=== PATIENT | female | born 1960 | race Caucasian/White ===

== ENCOUNTER 2016-12-17 08:04 | Emergency (ER) | payer OTHER ==
[~2016-12-17] VITALS: Ht 180.3 cm; Wt 113.4 kg
[2016-12-17] MEDS ORDERED: BACTRIM DS TAB1 EACH PO (08:11)
[2016-12-17] MEDS ORDERED: LIPITOR40 MG PO (08:14)
[2016-12-17] MEDS ORDERED: VITAMIN D2000 UNIT PO (08:14)
[2016-12-17] MEDS ORDERED: CARVEDILOL12.5 MG PO (08:14)
[2016-12-17] MEDS ORDERED: AMARYL4 MG PO (08:15)
[2016-12-17] MEDS ORDERED: CLONAZEPAM 1 MG1 M1 PO (08:15)
[2016-12-17] MEDS ORDERED: FEOSOL325 M1 PO (08:15)
[2016-12-17] MEDS ORDERED: CYMBALTA30 MG PO (08:15)
[2016-12-17] MEDS ORDERED: HYDROCODON-ACE1 EA12 PO (08:17)
[2016-12-17] MEDS ORDERED: INDAPAMIDE2.5 MG PO (08:17)
[2016-12-17] MEDS ORDERED: HUMALOG100 UNIT/2 SQ (08:18)
[2016-12-17] MEDS ORDERED: LANTUS100 UNIT/M SUBQ (08:18)
[2016-12-17] MEDS ORDERED: LEVOTHYROXIN0.088 MG PO (08:20)
[2016-12-17] MEDS ORDERED: MAGNESIUM250 M1 PO (08:21)
[2016-12-17] MEDS ORDERED: UNICOMPLEX M TA1 TA1 PO (08:22)
[2016-12-17] MEDS ORDERED: METFORMIN HCL1000 MG PO (08:22)
[2016-12-17] MEDS ORDERED: NAPROSYN500 MG PO (08:23)
[2016-12-17] MEDS ORDERED: ZOLOFT50 MG PO (08:24)
[2016-12-17] MEDS ORDERED: SILVADENE20 GM TP (08:25)
[2016-12-17] MEDS ORDERED: JANUVIA100 MG PO (08:25)
[2016-12-17] MEDS ORDERED: ALDACTONE25 MG PO (08:25)
[2016-12-17] MEDS ORDERED: TRAZODONE HCL100 MG PO (08:26)
[2016-12-17 08:47] LABS: HEMOGLOBIN 14.7 gm/dL (12.0-15.0); MCH 29.3 pg (26.0-34.0); MCHC 34.3 g/dL (28.0-37.0); MCV 85.3 fL (80.0-100.0); RBC 5.04 mil/uL (4.20-5.00); RDW 13.2 % (10.5-14.5); WBC 11.9 thou/uL (4.0-11.0)
[2016-12-17 08:54] LABS: CALCIUM 9.7 mg/dL (8.5-10.1); CREATININE 1.3 mg/dL (0.6-1.0); POTASSIUM 4.4 mmol/L (3.5-5.1)
[2016-12-17 08:58] LABS: ALBUMIN 3.9 g/dL (3.4-5.0); TOTAL BILIRUBIN 0.3 mg/dL (<0.1-1.0); TOTAL PROTEIN 8.5 g/dL (6.4-8.2)
[2016-12-17 09:39] VITALS: BP 112/64
== END 2016-12-17 10:00 | disposition home or self-care (01) ==
LOC: ER 08:04
PROVIDERS: Emergency Medicine
DX: T38.3X5A Adverse effect of insulin and oral hypoglycemic [antidiabetic] drugs, initial encounter (principal); F17.210 Nicotine dependence, cigarettes, uncomplicated; F12.10 Cannabis abuse, uncomplicated; Z91.041 Radiographic dye allergy status; Z88.8 Allergy status to other drugs, medicaments and biological substances; Z79.4 Long term (current) use of insulin; Y92.89 Other specified places as the place of occurrence of the external cause

== ENCOUNTER 2018-07-14 16:07 | Emergency (ER) | payer OTHER ==
[~2018-07-14] VITALS: Ht 180.3 cm; Wt 89.8 kg
[~2018-07-14 16:07] MED LIST: ALDACTONE25 MG PO; AMARYL4 MG PO; BACTRIM DS TAB1 EACH PO; CARVEDILOL12.5 MG PO; CLONAZEPAM 1 MG1 M1 PO; CYMBALTA30 MG PO; FEOSOL325 M1 PO; HUMALOG100 UNIT/2 SQ; HYDROCODON-ACE1 EA12 PO; INDAPAMIDE2.5 MG PO; JANUVIA100 MG PO; LANTUS100 UNIT/M SUBQ; LEVOTHYROXIN0.088 MG PO; LIPITOR40 MG PO; MAGNESIUM250 M1 PO; METFORMIN HCL1000 MG PO; NAPROSYN500 MG PO; SILVADENE20 GM TP; TRAZODONE HCL100 MG PO; UNICOMPLEX M TA1 TA1 PO; VITAMIN D2000 UNIT PO; ZOLOFT50 MG PO
[2018-07-14 20:00] VITALS: BP 145/71
== END 2018-07-14 20:00 | disposition short-term general hospital (02) ==
LOC: ER 16:07
DX: T25.221A Burn of second degree of right foot, initial encounter (principal); T31.0 Burns involving less than 10% of body surface; E11.40 Type 2 diabetes mellitus with diabetic neuropathy, unspecified; F17.210 Nicotine dependence, cigarettes, uncomplicated; F32.9 Major depressive disorder, single episode, unspecified; F41.9 Anxiety disorder, unspecified; Z91.041 Radiographic dye allergy status; Z88.8 Allergy status to other drugs, medicaments and biological substances; Z79.4 Long term (current) use of insulin

== ENCOUNTER 2019-02-26 20:57 | Inpatient (IN) | payer OTHER ==
[~2019-02-26] VITALS: Ht 180.3 cm; Wt 86.6 kg
[2019-02-26 20:59] VITALS: BP 149/49
[2019-02-26 21:28] LABS: ABSOLUTE NEUTROPHILS 8.4 thou/uL (1.4-8.2); BASOPHILS 0.8 % (0.0-2.0); EOSINOPHILS 0.2 % (0.0-3.0); HEMATOCRIT 37.5 % (37.0-47.0); HEMOGLOBIN 12.6 gm/dL (12.0-15.0); LYMPHOCYTES 3.4 % (24.0-44.0); MCH 29.6 pg (26.0-34.0); MCHC 33.8 g/dL (28.0-37.0); MCV 87.5 fL (80.0-100.0); MONOCYTES 4.7 % (1.0-8.0); PLATELET COUNT 174 thou/uL (150-400); POLYS 90.9 % (36.0-66.0); RBC 4.28 mil/uL (4.20-5.00); RDW 12.8 % (10.5-14.5); WBC 9.2 thou/uL (4.0-11.0)
[2019-02-26 21:29] LABS: URINE BILIRUBIN NEGATIVE (Negative); URINE BLOOD NEGATIVE (Negative); URINE CLARITY CLEAR; URINE COLOR YELLOW; URINE GLUCOSE-RANDOM* NEGATIVE (Negative); URINE KETONES TRACE (Negative); URINE LEUKOCYTES-REFLEX NEGATIVE (Negative); URINE NITRITE-REFLEX NEGATIVE (Negative); URINE PROTEIN (DIPSTICK) TRACE (Negative); URINE UROBILINOGEN 0.2 E.U./dl (0.2-1.0)
[2019-02-26 21:36] LABS: CALCIUM 9.6 mg/dL (8.5-10.1); CREATININE 1.1 mg/dL (0.6-1.0); POTASSIUM 4.2 mmol/L (3.5-5.1)
[2019-02-26 21:43] LABS: ALBUMIN 3.3 g/dL (3.4-5.0); DIRECT BILIRUBIN 0.2 mg/dL (<0.1-0.3); TOTAL BILIRUBIN 0.4 mg/dL (<0.1-1.0); TOTAL PROTEIN 7.3 g/dL (6.4-8.2)
[2019-02-26 22:01] LABS: AMP/METHAMP Negative (Negative); BARBITURATES Negative (Negative); BENZODIAZEPINES POSITIVE (Negative); COCAINE Negative (Negative); METHADONE Negative (Negative); OPIATES Negative (Negative); PCP Negative (Negative)
[2019-02-27 03:45] VITALS: BP 118/45
[2019-02-27 04:15] VITALS: BP 115/62
[2019-02-27 04:20] VITALS: BP 96/68
--- NOTE | 2019-02-27 05:27 | NUR ---
ASSUMED CARE OF PT AT 0415HRS. PT AOX4 AND AGREES TO CALL FOR HELP NEEDED. PT WAS ABLE TO SHUFFLE FROM CART TO BED. FALL PRECAUTION IN PLACE. PT DENIES PAIN OR NAUSEA AT THIS TIME. PT IS AFEBRILE UPON INITIAL ASSESSMENT. PT WAS ABLE TO ANSWER ALL ADMISSION RELATED QUESTIONS. PT IS UNABLE TO NAME ALL HOME MEDS AND DOSAGE AND STATES THAT HER SON WILL BRING MED LIST FROM HOME IN THE AM. VITAL SIGN STABLE AND NO S/S OF ACUTE DISTRESS. WILL CONTINUE TO MONITOR.
[2019-02-27 05:34] LABS: CALCIUM 9.2 mg/dL (8.5-10.1); CREATININE 0.9 mg/dL (0.6-1.0); POTASSIUM 3.6 mmol/L (3.5-5.1)
[2019-02-27 07:34] VITALS: BP 116/53
[2019-02-27] MEDS ORDERED: ABILIFY 5 MG TAB5 M1 (13:46)
[2019-02-27] MEDS ORDERED: IBUPROFEN 800800 M1 (13:53)
[2019-02-27] MEDS ORDERED: NEURONTIN 300300 M1 (14:09)
[2019-02-27] MEDS ORDERED: ASPIR 8181 M1 (14:15)
[2019-02-27] MEDS ORDERED: OXYBUTYNIN 5 MG5 M2 (14:17)
[2019-02-27] MEDS ORDERED: COZAAR 25 MG TA25 MG (14:19)
[2019-02-27 15:26] VITALS: BP 128/54
--- NOTE | 2019-02-27 16:07 | NUR ---
PT ASSESSED AT START OF SHIFT. PT WEAK AND UNSTEADY WHEN OUT OF BED. USES WALKER AT HOME. NOT ABLE TO REMEMBER VERY WELL WHEN ASKED ABOUT START OF SYMPTOMS AND HISTORY OF WT LOSS AND ANOREXIA. SON AND PT STATE NO APPETITE -EATS ONE OR TWO BITES FROM MEAL TRAY. TOOK SHOWER AND MYSTATIN PLACED IN PANUS AREA W/ YEAST. DR. FELIX IN TO SEE AND EXAMINE PT THIS AFTERNOON. LABS ORDERED. SHE WILL SHE PT TOMORROW.
[2019-02-27 18:54] VITALS: BP 126/51
[2019-02-28 00:05] LABS: CA 125 18.6 U/mL (0.0-38.1)
--- NOTE | 2019-02-28 01:58 | NUR ---
A*O *4, calm and pleasant; temperature [id number], Nursing Practioner Ms. Carey and Dr. Stack has been reported to about it. Temperature 37.2 at 2128. Patient coplained of LLQ pain 6/10, claiming that the pain was minor during the day time but worse at night. Nursing practioner Ms. Carey and Dr. Stack were both reported to about it; Patient has been in bed with eyes closed after Tylenol being administrated. Denied nausea, no vomitting.lab reviewed. Will keep monitoring.
--- NOTE | 2019-02-28 04:50 | NUR ---
Patient was noted to have a bleeding on the big left toe, band aid applied accoring to the patient request; patient claimed that it had happened times during the past; the staff educated the patient to report it to the doctor in the day time, the patient agreed; the staff would pass this on to the day nurse.
[2019-02-28 07:00] VITALS: BP 125/50
[2019-02-28 12:06] LABS: CEA 4.2 ng/mL (0.0-4.7)
--- NOTE | 2019-02-28 12:53 | NUR ---
ASSUMED CARE AT 0700, SHIFT ASSESSME
--- NOTE | 2019-02-28 12:54 | NUR ---
ASSUMED CARE AT 0700, SHIFT ASSESSMENT DONE, MEDS GIVEN, VSS. DENIES PAIN, NAUSEA, VOMITING. LAB CALLED ABOUT 2 BLOOD CULTURE THAT WAS POSTIVE FOR GRAM POSITIVE COCCI, DR GARCIA AWARE, RECEIVING IV ANTIBIOTICS. UP WITH A STANDBY ASSIST AND WALKER. WILL CONTINUE TO ASSESS AND ASSIST WITH ADLs NEEDED.
--- NOTE | 2019-02-28 14:22 | NUR ---
PT ADMITTED RELATED TO FEVER, N/V, PELVIC MASS. CM REVIEWED CHART AND SPOKE WITH CARE TEAM. CM MET WITH PT AT BEDSIDE THIS DAY. PT IS A&O X4. CM ROLE INTRODCUED. PT INDICATED SHE LIVES IN A SENIOR APARTMENT [facility]. PT INIDCATED SHE HAD USED A 4WW TO ASSIST WITH MOBILITY WORKFORCE DEVELOPMENT SPECIALIST. PT INDICATED SHE HAD BEEN INDEPDENENT WITH ADLS WORKFORCE DEVELOPMENT SPECIALIST, AND SHE INDICATED NO HH OR SKF HX. PT INDICATED HER PCP IS CUT IN WORKER RADHA DYER. PT INDICATED SHE PLANS TO RETURN HOME ONCE MEDICALLY STABLE. CM TO FOLLOW REGARDING DC PLANNING.
[2019-02-28 20:05] VITALS: BP 130/49
[2019-03-01 01:10] LABS: GLYCOHEMOGLOBIN (HGB A1C) 5.1 % (4.8-5.6)
--- NOTE | 2019-03-01 04:15 | NUR ---
ASSUMED CARE OF PT AT 1900HRS. PT AOX4 AND LETS NEEDS BE KNOWN. PT NO LONGER A FALL RISK AND AMBULATES WELL WITH A WALKER. ABX TREATMENT CONTINUED. PT DENIED NAUSEA. PT REPORTED SOME ABDOMINAL PAIN AND OT TORADOL WAS GIVEN. PT WAS UNABLE TO SLEEP WELL AND REPORTS THAT SHE USES MORE SLEEP AID AT HOME. VSS AND NO S/S OF ACUTE DISTRESS. WILL CONTINUE TO MONITOR.
[2019-03-01 07:30] VITALS: BP 148/67
[2019-03-01 08:07] LABS: HEP B SURFACE Ab(ANTI-HBS Non Reactive (()); HEPATITIS B SURFACE AG Negative (Negative); HEPATITIS C VIRUS AB <0.1 (0.0-0.9)
[2019-03-01 14:27] LABS: HEMOGLOBIN 11.1 gm/dL (12.0-15.0); MCH 29.1 pg (26.0-34.0); MCHC 33.6 g/dL (28.0-37.0); MCV 86.6 fL (80.0-100.0); RBC 3.81 mil/uL (4.20-5.00); RDW 12.7 % (10.5-14.5); WBC 4.3 thou/uL (4.0-11.0)
[2019-03-01 14:36] LABS: CALCIUM 9.1 mg/dL (8.5-10.1); CREATININE 0.8 mg/dL (0.6-1.0); MAGNESIUM 1.5 mg/dL (1.8-2.4); POTASSIUM 3.3 mmol/L (3.5-5.1)
--- NOTE | 2019-03-01 15:50 | NUR ---
Received awake on bed. Due medications given as prescribed, able to swallow tablets w/o difficulty. A+O. On room air. On blood sugar monitoring- taken and recorded, no sliding scale ordered, metformin on hold as per Dr's notes. On regular diet- pt tolerating meals, no nausea and vomiting noted. Vital signs stable. Wth SL at L hand- intact and flushing well. Visited by relative today. PT's medication reconcilation done today. A/w urine sample. Pt complained of abdominal pain, Dr Thompson informed, PRN medication Maalox given as prescribed. Urine sample sent to laboratory. Pt seen by Dr Morales- to continue IV antibiotics, a/w blood culture results. Assisted in ADLs, able to use walker with standby assist.
[2019-03-01 16:25] VITALS: BP 109/64
[2019-03-01 18:20] VITALS: BP 135/57
[2019-03-01 19:12] VITALS: BP 122/49
--- NOTE | 2019-03-02 04:17 | NUR ---
ASSUMED CARE OF PT AT 1900HRS. PT IS A0X4 AND LETS NEEDS BE KNOWN. PT DENIED PAIN OR NAUSEA THIS SHIFT. ABX TREATMENT CONTINUED. PT WAS ABLE TO GET COMFORTABLE AND SLEEP PART OF THE SHIFT. VSS AND NO S/S OF ACUTE DISTRESS. WILL CONTINUE TO MONITOR.
[2019-03-02 07:40] VITALS: BP 135/61
[2019-03-02 09:27] LABS: HEMATOCRIT 31.8 % (37.0-47.0); HEMOGLOBIN 10.8 gm/dL (12.0-15.0); MCH 29.4 pg (26.0-34.0); MCHC 33.8 g/dL (28.0-37.0); RBC 3.66 mil/uL (4.20-5.00); RDW 12.7 % (10.5-14.5); WBC 4.7 thou/uL (4.0-11.0)
[2019-03-02 09:32] LABS: CALCIUM 8.8 mg/dL (8.5-10.1); CREATININE 0.7 mg/dL (0.6-1.0); MAGNESIUM 1.5 mg/dL (1.8-2.4); POTASSIUM 3.6 mmol/L (3.5-5.1)
--- NOTE | 2019-03-02 11:29 | NUR ---
Received awake on bed. Due medications given as prescribed, no difficulty of swallowing noted. A+O. On blood sugar monitoring- taken and recorded, no insulin coverage, metformin still on hold as per doctor's order. With SL at L hand- intact and flushing well. Pt up ad lilly, using walker. Vital signs stable. Pt's IV dislodged after having a shower- resited at L FA.
[2019-03-02 15:39] VITALS: BP 115/46
[2019-03-02 20:05] VITALS: BP 135/58
--- NOTE | 2019-03-03 02:44 | NUR ---
ASSUMED CARE OF PT AT 1900HRS. PT AOX4 AND LETS NEEDS BE KNOWN. PT DENIED NAUSEA AND REPORTED MINIMAL PAIN/DISCOMFORT. ABX TREATMENT CONTINUED. PT WAS ABLE TO GET COMFORTABLE AND SLEEP PART OF THE SHIFT. VSS AND NO S/S OF ACUTE DISTRESS. WILL CONTINUE TO MONITOR.
[2019-03-03 07:53] VITALS: BP 130/74
--- NOTE | 2019-03-03 13:49 | NUR ---
PT SEEN BY GI SHE IS TO HAVE AN EGD IN THE AM AND IF NEGATIVE A GASTRIC EMPTYING STUDY. STILL AWAITING INPUT FROM ID ON IV ABX NEEDS. CM FOLLOWING REGARDING DC PLANNING.
[2019-03-03 20:06] VITALS: BP 136/66
--- NOTE | 2019-03-03 20:47 | NUR ---
QUIET UNEVENTFUL DAY. HAD ONE EPISODE OF ABD PAIN. PATIENT STATED THE PAIN HAPPENS APPROXIMATELY ONE HOUR AFTER EATING. TYLENOL GIVEN WITH MINIMAL RELIEF. TOLERATING DIET. IV ANTIBIOTICS CONTINUED ORDERED. AFEBRILE.
[2019-03-04 05:40] VITALS: BP 139/62
[2019-03-04 07:22] VITALS: BP 137/55
--- NOTE | 2019-03-04 07:50 | NUR ---
ASSUMED CARE AROUND 1900. AXOX4. KEPT NPO FOR EGD IN AM. MRI SCREENING COMPLETED FOR MRI OF THE FOOT. L GREAT TOE DRESSING CDI. PT WILL NOT ALLOW EXAMINATION. GAVE REPORT TO INCOMING RN ABOUT FOLLOWING UP FOR WOUND CARE NEED. CARE TRANSFERRED TO DAY RN AT THIS TIME.
[2019-03-04 14:36] VITALS: BP 130/54
--- NOTE | 2019-03-04 14:56 | NUR ---
WOUND CARE CONSULT; LEFT GREAT TOE. SMALL ABRASIONS. NO S/S OF INFECTION. THE PATIENT IS A DIABETIC. RECOMMENDATIONS; OFFLOADING SHOE APPLIED A BARRIER WIPE. COVER WITH A BANDAID.
--- NOTE | 2019-03-04 15:09 | NUR ---
DISCHARGE PLANNING. POSSIBLE WEEKEND DISCHARGE TO HOME. HOME HEALTH RECOMMENDED FOR PATIENT AT DISCHARGE. PATIENT REFERRAL FAXED TO [facility] FOR PATIENTS DISCHARGE NEEDS. VERIFIED REFERRAL RECEIVED. AWAITING ACCEPTANCE RESPONSE FROM [facility]. FOLLOWINIG.
[2019-03-04 15:31] LABS: HEMATOCRIT 31.3 % (37.0-47.0); HEMOGLOBIN 10.5 gm/dL (12.0-15.0); MCH 29.4 pg (26.0-34.0); MCHC 33.6 g/dL (28.0-37.0); MCV 87.5 fL (80.0-100.0); RBC 3.57 mil/uL (4.20-5.00); RDW 12.6 % (10.5-14.5); WBC 7.4 thou/uL (4.0-11.0)
[2019-03-04 15:43] LABS: CALCIUM 9.4 mg/dL (8.5-10.1); CREATININE 0.7 mg/dL (0.6-1.0); MAGNESIUM 1.6 mg/dL (1.8-2.4)
--- NOTE | 2019-03-04 16:13 | NUR ---
CM SENT REFERAL TO [facility] FOR POSSIBLE HOME INFUSION UPON DC. THEY INDICATED THAT IF PF DISCHARGES ON TO IV ABX COPAY IS $6.80 AND THERE IS A SUPPLY COST O $17.19 PER DAY UNIL OOP OF 6400 IS MET OF WHICH 20 HAS BEEN PAID. DC ALL AROUND PATTERNMAKER SENT REFERAL TO [facility] AND THEY ARENT ABLE TO [facility] PT REFERRAL SENT TO [facility]. SHOULD PT BE MEDICALLY STABLE TO DC OVER THE WEEKEND. ORDERS WILL NEED TO BE FAXED TO CALL PHARMACIST CELL AT . FAX ORDERS TO [facility] AT . CM TO FOLLOW INDICATED WITH DC PLANNING.
--- NOTE | 2019-03-04 16:49 | NUR ---
Received awake on bed. Due medications given as prescribed. A+0x4. On room air. On nothing per orem- pt scheduled for EGD today, consent signed; a/w time for procedure. With SL at L FA- intact and flushing well. Pt schedule for MRI of foot today- checklist sent already. Vital signs stable. Assisted in ADLs. Gastro staff called, update given re: patient, will fetch her between 8-9am- pt informed. Pt had MRI after having EGD done. Pt had EGD done, GI nurse relayed that pt has gastritis and ulcer- Dr Thompson informed. Pt's missed medication re-started. No nausea, no vomiting and abdominal pain noted. Put in wound care consult for her Left big toe wound- Pt seen by Wound nurse Misha- wound care ordered. With order of Abdominal Ct scan with contrast- requested; pt placed on NPO- to be brought down at 5pm, coordinated with CT scan staff and volunteer transport to bring pt down. Wound photo not taken due to POC- to inform night staff or to do tomorrow.
[2019-03-04 17:10] VITALS: BP 130/54
[2019-03-04 20:30] VITALS: BP 123/48
--- NOTE | 2019-03-05 04:06 | NUR ---
PATIENT ALERT AND ORIENTED X4. UP TO BATHROOM AD NAVEED. DENIES PAIN. BLOOD SUGAR TAKEN PER ORDER, HOWEVER, NO S/S OR ORAL MEDICATION. IVPB INFUSED W/O COMPLICATION. PATIENT COOPERATIVE WITH CARE. RESTING QUIETLY AT TIME OF NOTE. WILL MONITOR.
[2019-03-05 04:51] VITALS: BP 133/48
[2019-03-05 08:00] VITALS: BP 146/60
--- NOTE | 2019-03-05 11:54 | NUR ---
Received awake on bed. Due medications given as prescribed, able to swallow tablets w/o difficulty. A+Ox4. On room air. With SL at upper left arm- intact and flushing well. Vital signs stable. Able to mobilize using walker. On blood sugar monitoring, no insulin coverage, oral metformin on hold. Tolerating meals, no nausea, no vominting and abdominal pain noted.
--- NOTE | 2019-03-05 14:19 | 2DMMODE ---
[facility] [address] [place] [address] 2 D/M-MODE ECHOCARDIOGRAM Name: CHRISTOPHER SANCHEZ Room #: 434-P ADM IN M.R.#: [id number] Admission: 02/27/19 Attend Phys: Sang Guillory Discharge: Date of : 58 Report #: [id number] THIS REPORT FOR: //name// APPROVED REPORT Study performed: 03/05/2019 12:29:23 EXAM: Comprehensive 2D, Doppler, and color-flow Echocardiogram Patient Location: Bedside Room #: 434 Status: on-call BSA: 2.07 HR: 60 bpm BP: 146/60 mmHg Rhythm: NSR Other Information Study Quality: Adequate Risk Factors: Cardiac Risk Factors: Smoking, DM, Hyperlipidemia, HTN Indications Murmur 2D Dimensions IVSd: 5.98 (7-11mm) LVOT Diam: 20.00 (18-24mm) LVDd: 47.50 mm PWd: 9.29 (7-11mm) Ascending Ao: 31.72 (22-36mm) LVDs: 33.27 (25-40mm) Aortic Root: 30.56 mm Volumes Left Atrial Volume (Systole) Single Plane 4CH: 45.93 mL Single Plane 2CH: 53.26 mL LA ESV Index: 27.00 mL/m2 Aortic Valve AoV Peak Eulalio.: 2.20 m/s AO Peak Gr.: 19.35 mmHg LVOT Max P.16 mmHg AO Mean Gr.: 12.48 mmHg LVOT Mean P.21 mmHg AO V2 Mean: 1.73 m/s LVOT Max V: 0.97 m/s AO V2 VTI: 62.15 cm LVOT Mean V: 0.70 m/s FARNAZ (VTI): 1.43 cm2 LVOT V1 VTI: 28.93 cm [facility] [place] [address] 2 D/M-MODE ECHOCARDIOGRAM Name: CHRISTOPHER SANCHZE Room #: 434-P [facility] IN ..#: [id number] Admission: 02/27/19 Attend Phys: Sang Guillory Discharge: Date of : 58 Report #: [id number] Vmax: 1.36 cm2 SV (LVOT): 88.66 mL Mitral Valve E/A Ratio: 1.4 MV Decel. Time: 278.56 ms MV E Max Eulalio.: 1.33 m/s MV A Eulalio.: 0.97 m/s MV PHT: 80.78 ms IVRT: 65.74 ms TDI E/Lateral E': 14.78 E/Medial E': 14.78 Medial E' Eulalio.: 0.09 m/s Lateral E' Eulalio.: 0.09 m/s Pulmonary Valve PV Peak Eulalio.: 1.15 m/s PV Peak Gr.: 5.30 mmHg Pulmonary Vein P Vein S: 0.61 m/s P Vein A: 0.25 m/s P Vein D: 0.56 m/s P Vein A Dur.: 138.4 msec P Vein S/D Ratio: 1.09 Tricuspid Valve TR Peak Eulalio.: 2.44 m/s RAP Estimate: 7.00 mmHg TR Peak Gr.: 23.79 mmHg PA Pressure: 31.00 mmHg Left Ventricle The left ventricle is normal size. There is normal LV segmental wall motion. There is normal left ventricular wall thickness. Left ventricular systolic function is normal. The left ventricular ejection fraction is within the normal range. LVEF is 65%. The left ventricular diastolic function is normal. Right Ventricle The right ventricle is normal size. The right ventricular systolic function is normal. Atria The left atrium size is normal. The right atrium size is normal. Aortic Valve Aortic valve is calcified, mildly stenotic. No aortic regurgitation [facility] [address] [place] [address] 2 D/M-MODE ECHOCARDIOGRAM Name: CHRISTOPHER SANCHEZ Room #: 434-P [facility] IN M.R.#: [id number] Admission: 02/27/19 Attend Phys: Sang Guillory Discharge: Date of : 58 Report #: [id number] is present. The peak aortic valve pressure gradient is 19 mmHg and the mean pressure gradient is 12 mmHg. The calculated aortic valve area is 1.4 cm2 Mitral Valve The mitral valve is normal in structure. Trace mitral regurgitation. No evidence of mitral valve stenosis. Tricuspid Valve The tricuspid valve is normal in structure. Mild to moderate tricuspid regurgitation. Pulmonary artery pressure is 30 mmHg. Pulmonic Valve The pulmonary valve is normal in structure. There is no pulmonic valvular regurgitation. Great Vessels The aortic root is normal in size. The ascending aorta is normal in size. IVC is normal in size and collapses >50% with inspiration. Pericardium There is no pericardial effusion. <Conclusion> Left ventricular systolic function is normal. There is normal LV segmental wall motion. LVEF is 65%. Normal diastolic function Aortic valve is calcified, mildly stenotic. The peak aortic valve pressure gradient is 19 mmHg and the mean pressure gradient is 12 mmHg. The calculated aortic valve area is 1.4 cm2 The mitral valve is normal in structure. Trace mitral regurgitation. Mild to moderate tricuspid regurgitation. Pulmonary artery pressure of 30 mmHg. There is no pericardial effusion. <ELECTRONICALLY SIGNED> By: Omero Cantu MD, [facility] 03/05/19 1419 1419 141 Omero Cantu MD, FACC /INF
[2019-03-05 15:00] VITALS: BP 146/55
[2019-03-05 19:38] VITALS: BP 152/69; BP 152/696
--- NOTE | 2019-03-06 04:27 | NUR ---
Pt. rested quietly at short intervals during the night when checked on during frequent rounds. She has been up ad lilly in her room and in the hallway. Pt. offers no c/o pain or nausea. No c/o indigestion.
[2019-03-06 07:34] VITALS: BP 165/63
--- NOTE | 2019-03-06 12:24 | EKG ---
[address] [address] ELECTROCARDIOGRAM REPORT Name: CHRISTOPHER SANCHEZ Room #: 434- ADM IN M.R.#: [id number] Admission: 02/27/19 Attend Phys: Sang Guillory MD Discharge: Date of : 58 Report #: [id number] THIS REPORT FOR: //name// [facility] Test Date: 2019-03-05 Test Time: 12:06:03 Pat Name: CHRISTOPHER SANCHEZ Department: Room: 434 Gender: F Slot Host: VELIA : 1960 Requested By: Roberth Thompson Order Number: [id number] MD: Omero Cantu Measurements Intervals [place] Rate: 54 P: 60 MS: 194 QRS: 8 QRSD: 83 T: 16 QT: 449 QTc: 426 Interpretive Statements Sinus bradycardia Otherwise normal tracing No previous ECG available for comparison Electronically Signed On 03-06-2019 12:23:48 CDT by Omero Cantu [email or web address] <ELECTRONICALLY SIGNED> By: Omero Cantu MD, [facility] 03/06/19 1223 D: [id number] 120 Omero Cantu MD, FACC /EPI
--- NOTE | 2019-03-06 12:57 | NUR ---
PT CALLED OUT AND STATED THAT HER IV SITE WAS STINGING. NURSE ASSESSED SITE AND IV WAS INFILTRATED. IV REMOVED AND WARM COMPRESS APPLIED. IV TEAM PAGED AND NEW IV WAS PLACED BY IV NURSE. WILL CONTINUE TO MONITOR IV SITE AND REAPPLY WARM COMPRESSES NEEDED.
[2019-03-06 15:22] VITALS: BP 128/51
[2019-03-06 19:11] VITALS: BP 158/65
--- NOTE | 2019-03-07 04:13 | NUR ---
Pt. rested quietly at intervals during the night when checked on during frequent rounds. Pt. offers no c/o pain. Left arm pinkish/red and swollen from previous iv site. Warm compress offered, but pt. refused. Pt. has been up ad lilly in her room.
[2019-03-07 07:30] VITALS: BP 157/65
--- NOTE | 2019-03-07 09:44 | NUR ---
Received awake on bed. Due medications given as prescribed. A+Ox4. On room air. On blood sugar monitoring, no insulin coverage, Metformin still on hold- taken and recorded accordingly. With SL at R FA- intact and flushing well. A/W PT/OT evaluation- then possible d/c today after evaluations. A/W CM input re: set up. Vital signs stable. Able to ambulate using walker, independent with ADLs. Pt very keen to go home today. With abrasion at L toe- to change dressing today and take photo.
--- NOTE | 2019-03-07 10:40 | NUR ---
emmy called [facility] and spoke with Danielle, Danielle couldn't find referral sent last week so she asked to send another, patient will dc today and no longer require iv antibiotics. CM to follow up.
[2019-03-07 12:00] VITALS: BP 130/54
[2019-03-07] MEDS ORDERED: AUGMENTIN 875-1 EACH PO (12:31)
[2019-03-07] MEDS ORDERED: PANTOPRAZOLE SO40 M1 PO (12:37)
--- NOTE | 2019-03-07 13:45 | NUR ---
CARE TEAM INDICATED THAT PT IS MEDICALLY STABLE TO DC HOME THIS DAY. PT IS TO BE ON PO ABX. CM NOTIFIED [facility] OF THAT. PT IS TO HAVE [facility]. PT HAS ALL RECOMMENDED DME. PT'S DAVIAN IS TO TRANSPORT HER HOME. NO OTHER CM INTERVENTION INDICATED. CASE CLOSED.
--- NOTE | 2019-03-07 14:06 | PATH ---
[facility] [address] [place] [address] PATHOLOGY RPT PROCEDURE Name: CHRISTOPHER TAYLOR Room #: 434-P ADM IN M.R.#: [id number] Admission: 02/27/19 Date of : 58 Discharge: Report #: [id number] Path Case #: [id number] [facility] Accession Number: [id number] . 01 Material submitted: . PART A: duodenum - DUODENAL BX PART B: stomach - GASTRITIS, GASTRIC ULCER . 01 Clinical history: . Abdominal pain, gastritis, gastric ulcer. . 02 Diagnosis: A. Small bowel mucosa, duodenum rule out sprue, endoscopic biopsy: - Mild non-specific acute and chronic duodenitis. - Negative for villous blunting or increase in intraepithelial lymphocytes. . B. Gastric mucosa, gastritis/gastric ulcer, endoscopic biopsy: - Moderate reactive gastropathy. - Negative for intestinal metaplasia or atrophy. - Negative for Helicobacter pylori (properly controlled immunohistochemical stain performed). (IUV/db; 03/07/2019) [facility] 03/07/2019 1032 Local . 02 Electronically signed: . Corinna Mullins MD, Pathologist NPI- [id number] . 01 Gross description: . A. Received in formalin labeled "Christopher Talyor, duodenal BX" is a 0.9 x 0.4 x 0.2 cm aggregate of montero-brown mucosa fragments. The specimen is submitted in A1. . B. Received in formalin labeled "Christopher Taylor, gastritis" is a 1.0 x 0.5 x 0.2 cm aggregate of montero-brown mucosa fragments. The specimen is submitted in B1. ([facility]; 03/05/2019) [facility] 03/05/2019 1355 Local . 02 Pathologist provided ICD-10: K29.80, K31.9 . 02 CPT . 921604, 185631, E74192 Specimen Comment: A courtesy copy of this report has been sent to Specimen Comment: [phone], . Specimen Comment: Report sent to / [place] [address] PATHOLOGY RPT PROCEDURE Name: CHRISTOPHER TAYLOR Room #: 434-P ADM IN M.R.#: [id number] Admission: 02/27/19 Date of : 58 Discharge: Report #: [id number] Path Case #: [id number] Performed at: 01 [facility] [address] [place] [address] [address], [place], [place] [id number] MD Olegario Walton MD Phone: [phone] Performed at: [address] [id number] MD Corinna Mullins MD Phone: [phone]
--- NOTE | 2019-03-11 08:09 | P ---
[facility] [place] [address] PROCEDURE REPORT Name: CHRISTOPHER SANCHEZ Room #: 434-P [facility] IN M.R.#: [id number] Admission: 02/27/19 Attend Phys: Sang Guillory MD Discharge: 03/07/19 Date of : 58 Report #: [id number] THIS REPORT FOR: //name// CC: NANCY ROSSI physician/PCP Sang Guillory DATE OF SERVICE: 03/04/2019 PROCEDURE PERFORMED: Upper endoscopy with biopsies. HISTORY OF PRESENT ILLNESS: The patient is a 58-year-old female with nausea, vomiting, abdominal pain and fever. Blood cultures are actually positive. Etiology of infection is still under investigation. CT scan of the abdomen and pelvis showed bilateral ovarian masses, most likely cystic masses. She has been on antibiotics. She is being followed by Dr. Morales at this time. Her nausea and vomiting has actually improved. Her abdominal pain is crampy and low in general. Plan is for EGD. DESCRIPTION OF PROCEDURE: The risks and benefits of the procedure were explained to the patient, those risks including but not limited to bleeding, perforation and the risk of sedation. She understood these risks and gave informed consent. Sedation was given using propofol per anesthesia. Next, using a standard Olympus upper endoscope, the scope was placed in the patient's mouth and advanced under direct vision through the esophagus, stomach and into the second portion of the duodenum. The larynx was normal in appearance. The esophagus was normal throughout. The GE junction was normal. Overall, the gastric mucosa was normal in the fundus; however, in the body and antrum, a moderate gastritis was noted. Also, multiple small clean white based ulcers were noted in the antrum, a total of approximately 8-10 ulcers. No evidence of bleeding. Biopsies were obtained to rule out H. pylori. The pylorus was normal and patent. The duodenal bulb, first and second portion were all normal. Biopsies were also obtained to rule out the possibility of celiac sprue. The scope was then withdrawn and the procedure terminated. The patient tolerated the procedure well. IMPRESSION: 1. Multiple small gastric ulcers as well as gastritis as described above. 2. Otherwise, normal upper endoscopy. RECOMMENDATIONS: 1. Await biopsy results. 2. We will start daily PPI therapy. 3. Continue Zofran p.r.n. for nausea. [address] [address] PROCEDURE REPORT Name: CHRISTOPHER SANCHEZ Room #: 434-P [facility] IN M.R.#: [id number] Admission: 02/27/19 Attend Phys: Sang Guillory MD Discharge: 03/07/19 Date of : 58 Report #: [id number] Thank you for allowing me to participate in her care. <ELECTRONICALLY SIGNED> By: Migue Bassett MD 03/11/19 0809 1047 [id number] Migue Bassett MD /lise
--- NOTE | 2019-03-27 22:14 | HC ---
[facility] [place] [address] CONSULTATION Name: CHRISTOPHER SANCHEZ Room #: 434-P [facility] IN M.R.#: [id number] Admission: 02/27/19 Attend Phys: Sang Guillory MD Discharge: 03/07/19 Date of : 58 Report #: [id number] THIS REPORT FOR: //name// CC: [facility] physician/PCP Sang Guillory DATE OF SERVICE: 02/27/2019 CONSULTATION: Infectious Diseases. HISTORY OF PRESENT ILLNESS: The patient is a 58-year-old female admitted to the hospital last night with multiple complaints. The patient said she felt pretty good on Thursday, February 25. She felt maybe a little bit of malaise. On February 26, the patient felt very sick and she fell. She bruised her arms, but did not have any serious injury. She did call an ambulance because she felt so bad and was evaluated, but they decided not to come to the hospital. During the course of the day on the February 26, the patient became more ill with nausea, vomiting, cough, headache and high fever. She called an ambulance back, was found to have a temperature of 104.6 and was transported to the hospital. Evaluation showed no obvious source of fever. The patient was given Rocephin and doxycycline and admitted. Infectious Disease consultation was requested. PAST MEDICAL HISTORY: Significant for diabetes with hypertension and hyperlipidemia. The patient says she checks her sugars and they are generally less than 125 and she says her last hemoglobin A1c around November was 5.1. The patient is disabled by anxiety and depression. Other diagnoses include hypothyroidism and Stahl's palsy. The patient has had 2 children. 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 MEDICATION RECONCILIATION: The patient's current medication include Rocephin 1 g daily, doxycycline 100 mg IV b.i.d., nystatin to the skin, Zofran 4 mg IV p.r.n., Tylenol 650 mg q.4h. p.r.n., clonazepam 1 mg at bedtime. In addition, at home, the patient was taking Amaryl 4 mg b.i.d., Zoloft 100 mg q.i.d., Abilify 5 mg daily, ibuprofen 800 mg t.i.d. p.r.n., Neurontin 300 mg at bedtime, aspirin 81 mg daily, oxybutynin 5 mg daily, losartan 25 mg daily, atorvastatin 20 mg daily, indapamide 2.5 mg daily, L-thyroxine 0.088 mg daily, metformin 1000 mg b.i.d., multivitamins daily, and trazodone 100 mg at bedtime. ALLERGIES: IODINE, PIOGLITAZONE and LISINOPRIL. FAMILY HISTORY: Noncontributory. SOCIAL HISTORY: The patient is single. She lives by herself. She lives in [facility] with independent living. She does admit to smoking cigarettes. She has been able to cut down to about half a pack per day. She [address] [place] [address] CONSULTATION Name: CHRISTOPHER SANCHEZ [id number]: 02/27/19 Attend Phys: Sang Guillory MD Discharge: 03/07/19 Date of : 58 Report #: [id number] denies use of alcohol or illegal drugs except for marijuana. She denies any IV drug use. She denies being sexually active. She is not aware of any tick bites or mosquito bites. She has not been around anyone else who has been sick. No unusual or bad food. REVIEW OF SYSTEMS: GENERAL: Fevers, although not measured until the ambulance came, with chills. No rigors nor sweats. Generalized weakness and malaise. ENT: The patient complains of a frontal headache, which is mostly gone. No sinus congestion, drainage, sore throat, trouble swallowing. No dental issues. The patient denies any skin rashes. CHEST: The patient has developed a dry cough, worse over the course of today. She denies shortness of breath, angina, chest pain. The patient complains mostly of abdominal pain. It is in the right lower quadrant. It was painful when she underwent pelvic exam last night and this is similar kind of pain. She had nausea and vomiting the day prior to admission, but this has resolved. She says that she had one bowel movement yesterday. It was warm, but "weird." She does not characterize it otherwise. The patient denies any urinary complaints. No pain in her extremities. PHYSICAL EXAMINATION: GENERAL: The patient appears uncomfortable, but healthy, not in any distress. VITAL SIGNS: Show temperature measured 104.6. Temperature of 101.2 at the time of my examination. SKIN: Shows no rash, lesion or exanthem. The right great toe is somewhat swollen with extra callus formation. The patient says this is "normal" for her and no different than baseline. The second toe shows a partial amputation, which is well healed. ENT: Negative. Dentition is fair. No obvious issues. NECK: No adenopathy. HEART: Sounds normal. LUNGS: Clear. ABDOMEN: Belly is soft and mild to moderately tender. I cannot appreciate any mass, although I did not try to press very hard. EXTREMITIES: Unremarkable except for changes noted above. No cellulitis. No wounds. LABORATORY DATA: White count is 9.2, hemoglobin 12.6, platelet 174,000. Electrolytes, BUN and creatinine are normal. Glucose 117. The liver function tests are normal. Chest x-ray is negative. Urine drug screen is negative except for benzodiazepines, which are consistent with her medication list and marijuana. The influenza titers are negative. Urinalysis is negative. CT shows cystic ovarian masses bilaterally. Sonogram showed the same on one side. The other ovary cannot be visualized. ASSESSMENT AND PLAN: In summary, we have a patient who presents with fevers and [facility] [address] [place] [address] CONSULTATION Name: CHRISTOPHER SANCHEZ Room #: 434-P [facility] IN M.R.#: [id number] Admission: 02/27/19 Attend Phys: Sang Guillory MD Discharge: 03/07/19 Date of : 58 Report #: [id number] abdominal pain. This is not associated with any GI symptoms, but she does have significant cystic lesions on her ovaries. She did have nausea and vomiting, which resolved, headache, which resolved, and the cough, which is getting worse, and abnormal feet, which are baseline and asymptomatic. There is no obvious infectious cause of fever apparent. It may be worthwhile to repeat the chest x-ray now the patient has more of a cough. I would like to obtain some followup blood cultures with temperature. We will continue the patient on the Rocephin and doxycycline. We do have tumor marker studies pending. I really see nothing to suggest a drug fever, pulmonary embolus or any kind of new collagen vascular disease. This may very well be a viral type syndrome. The patient has no risk factors for acute human immunodeficiency virus. She says she has not been sexually active for 20 years and does not use IV drugs. I tend to believe this is probably accurate. For now, I will continue the patient on supportive therapy, fluids, antipyretics, analgesics and continue antibiotics until we have results of cultures and followup x-ray. I appreciate the opportunity of input in the care of this pleasant patient. Thank you for referring her for Infectious Disease consultation. <ELECTRONICALLY SIGNED> By: Uche Momin MD 03/27/19 [id number] Uche Momin MD /nt
== END 2019-03-07 15:00 | disposition home health service (06) | DRG 872 ==
LOC: ER 20:57 → EROBS 02-27 03:33 → 4W 02-27 03:33 → 4S 03-04 12:07 → ENTRNSPT 03-07 14:42 → EDTRNSPTSTS 03-07 14:44 → 4S 03-07 15:00
PROVIDERS: Emergency Medicine; Internal Medicine; Internal Medicine Infectious Disease; Nurse Practitioner Family; Obstetrics & Gynecology; Specialist; ADMIT Internal Medicine
PROC: 0DB98ZX Excision of Duodenum, Via Natural or Artificial Opening Endoscopic, Diagnostic (ICD-10-PCS; principal; 2019-03-04)
PROC: 0DB68ZX Excision of Stomach, Via Natural or Artificial Opening Endoscopic, Diagnostic (ICD-10-PCS; principal; 2019-03-04)
DX: A41.9 Sepsis, unspecified organism (principal); K25.9 Gastric ulcer, unspecified as acute or chronic, without hemorrhage or perforation; K29.70 Gastritis, unspecified, without bleeding; E86.0 Dehydration; B37.2 Candidiasis of skin and nail; E78.5 Hyperlipidemia, unspecified; E03.9 Hypothyroidism, unspecified; F41.9 Anxiety disorder, unspecified; G51.0 Bell's palsy; E11.42 Type 2 diabetes mellitus with diabetic polyneuropathy; F32.9 Major depressive disorder, single episode, unspecified; N83.209 Unspecified ovarian cyst, unspecified side; I10 Essential (primary) hypertension; Z88.8 Allergy status to other drugs, medicaments and biological substances; Z91.041 Radiographic dye allergy status; Z79.899 Other long term (current) drug therapy; Z79.84 Long term (current) use of oral hypoglycemic drugs
CPT/HCPCS: 10040; 10195; 62110; 62900; 70005